=== PATIENT | female | born 1955 | race Caucasian/White ===

== ENCOUNTER 2016-04-04 02:09 | Inpatient (IN) ==
[2016-04-04] MEDS ORDERED: Ondansetron 4 MG/2 ML VIAL IVP PRN ×2 (05:28→21:02)
[2016-04-04] MEDS: *HR* HYDROmorphone (PF) 1 MG/ML SYRINGE IVP PRN ×8 (05:41→22:25)
[2016-04-04 06:13] LABS: Basophils % 0.5 %; Eosinophils # 0.2 K/mcL (0.0-0.6); Eosinophils % 3.2 %; Hematocrit 41.7 % (35.3-44.9); Hemoglobin 13.7 g/dL (11.5-15.4); Immature Granulocytes % 0.4 % (0-4); Lymphocytes # 1.4 K/mcL (0.6-4.6); Mean Corpuscular HGB Conc 32.9 g/dL (31.6-35.5); Mean Corpuscular Hemoglobin 31.1 pg (28.0-33.3); Mean Corpuscular Volume 94.8 fL (83.0-100.0); Mean Platelet Volume 10.9 fL (9.4-12.4); Monocytes # 0.7 K/mcL (0.0-1.3); Monocytes % 9.4 %; Neutrophils # 5.1 K/mcL (1.6-8.9); Platelet Count 195 K/mcL (140-400); Red Cell Distribution Width 13.6 % (11.5-14.5); Segmented Neutrophils % 67.5 %
[2016-04-04 06:23] LABS: BUN/Creatinine Ratio 27 (6-26); Blood Urea Nitrogen 23 mg/dL (7-20); Calcium 9.1 mg/dL (8.6-10.8); Carbon Dioxide 23 mEq/L (19-29); Chloride 114 mEq/L (98-109); Glucose 96 mg/dL (70-99); Osmolality,Calculated 300 (280-300); Potassium 3.4 mEq/L (3.5-4.5); Sodium 143 mEq/L (136-145); eGFR For African Americans > 60 (> 60); eGFR For Non-African Americans > 60 (> 60)
[2016-04-04 06:31] LABS: INR 1.2; Prothrombin Time 12.7 Seconds (9.4-12.1)
--- NOTE | 2016-04-04 06:49 | Orthopedic History & Physical ---
Date of Encounter: 04/04/16 Time of Encounter: 06:48 History of Present Illness HPI: Ms. Burleson is a 60 year old female Status post fall off a treadmill early this morning injuring her left leg. Patient denies any head trauma. Complains of pain in the left leg. Past medical history: Fibromyalgia, gastroesophageal reflux disease chronic pain. Surgical history hysterectomy, eye surgery. Physical exam alert and oriented 3 normocephalic atraumatic Left lower extremity swelling and tenderness decreased motion secondary to pain X-rays show comminuted displaced left proximal tibia fracture plan for a left total knee replacement. I discussed the risks benefits as well as recovery of the planned procedure. Labs were reviewed no abnormalities. Past Med Surg Social Fam HX - Past Medical History Medical history: arthritis, COPD, fibromyalgia, GERD, thyroid disease Psychiatric history: no psych history - Past Surgical History Surgical History: hysterectomy - Social History Smoking Status: Never smoker Smokeless Tobacco Status: No Alcohol use: none Drug use: none - Family History Father Hx Family Cancer: Yes (Prostate) Medications and Allergies Levothyroxine [Synthroid] 25 mcg PO 0630 04/04/16 [History] Allergies codeine Allergy (Verified 04/04/16 04:43) Itching Penicillins Allergy (Verified 04/04/16 04:43) Itching tramadol Allergy (Verified 04/04/16 04:43) Itching All Systems Reviewed: A 10-system review of systems was performed and is negative for pertinent findings except as documented above in the HPI. Physical Exam - Constitutional Vitals: Temp Pulse Resp BP Pulse Ox 98.4 F 91 16 139/78 98 04/04/16 05:16 04/04/16 05:16 04/04/16 05:16 04/04/16 05:16 04/04/16 05:16 Results - Labs Result Diagrams: 04/04/16 05:50 04/04/16 05:50 Labs: Abnormal lab results PT 12.7 Seconds (9.4-12.1) H 04/04/16 05:50 Potassium 3.4 mEq/L (3.5-4.5) L 04/04/16 05:50 Chloride 114 mEq/L (98-109) H 04/04/16 05:50 BUN 23 mg/dL (7-20) H 04/04/16 05:50 BUN/Creatinine Ratio 27 (6-26) H 04/04/16 05:50 H & H 04/04/16 Range/Units 05:50 Hgb 13.7 (11.5-15.4) g/dL Hct 41.7 (35.3-44.9) % All other labs normal.
--- NOTE | 2016-04-04 09:11 | Internal Medicine Consult Note ---
<Susan Wylie - Last Filed: 04/04/16 09:12> Date of Encounter: 04/04/16 Time of Encounter: 08:15 Internal Medicine - CN: HPI - Data of Consult Patient: new to practice Consult date: 04/04/16 Requesting Physician: Kd Olivas MD - Consult Narrative Reason for consult: Preop evaluation History of present illness: Ms. Burleson is a 60 year old female with PMH of COPD, GERD, hypothyroidism, fibromyalgia and chronic sciatic pain. Patient had a mechanical fall from the treadmill and landed on her left leg. Patient presented to [facility] ED for left knee pain and X-ray found comminuted displaced left proximal tibia fracture. Patient was admitted to [facility] for left total knee replacement and hospitalist is consulted for preoperative evaluation. Patient reports having pain at anterior and posterior left knee. She also has chronic bilateral sciatic pain. Patient denies fever, chills, headache, chest pain, dyspnea, abdominal pain, peripheral edema, numbness/tingling, focal weakness. Patient denies hitting her head during the fall. Patient denies any known cardiac disorder such heart attack or valvular disorder but did have stress test done at [facility] in February. Patient states she is on aspirin, statin and Carvedilol, which she thinks it's for protecting her heart. Her COPD is secondary to second-hand smoking and she is not on home oxygen. Patient denies any history of stroke. Per patient, she is in general pretty healthy & active and able to walk 1-2 blocks without significant shortness of breath. Patient is full code and okay to short-term intubation. - Constitutional Constitutional: falls, no anorexia, no chills, no fever(s), no weight gain, no weight loss - EENT Eyes: no loss of vision Ears: no decreased hearing Nose, mouth and throat: no dysphagia - Cardiovascular Cardiovascular ROS IM: no chest pain, no edema, no syncope - Respiratory Respiratory: no cough, no dyspnea, no hemoptysis - Gastrointestinal Gastrointestinal: no abdominal pain, no diarrhea, no hematochezia, no melena, no nausea, no vomiting - Genitourinary Genitourinary: no difficulty urinating, no dysuria, no hematuria - Musculoskeletal Musculoskeletal ROS IM: as per HPI, back pain - Integumentary Integumentary IM: no pruritus, no rash - Neurological Neurological ROS: no focal weakness, no numbness, no tingling - Hematologic/Lymphatic Hematologic/Lymphatic: easy bruising, no easy bleeding Past Med Surg Social Fam HX - Past Medical History Medical history: arthritis, COPD, fibromyalgia, GERD, thyroid disease Psychiatric history: no psych history - Past Surgical History Surgical History: hysterectomy - Social History Smoking Status: Never smoker Smokeless Tobacco Status: No Alcohol use: none Drug use: none - Family History Father Hx Family Cancer: Yes (Prostate) Mother Hx Family Neurologic Disorders: Yes (Stroke) Internal Medicine - CN: Meds Diclofenac Sodium [Voltaren] 50 mg PO Q8HR 04/04/16 [History] Levothyroxine [Synthroid] 25 mcg PO 0630 04/04/16 [History] Montelukast [Singulair] 10 mg PO HS 04/04/16 [History] OxyCODONE/APAP 7.5/325 [Percocet 7.5/325 MG] 1 each PO Q6HR PRN 04/04/16 [ History] Pravastatin Sodium [Pravachol] 20 mg PO HS 04/04/16 [History] Tiotropium [Spiriva] 1 puff IH 0700 04/04/16 [History] Zolpidem [Ambien] 5 mg PO HS 04/04/16 [History] Allergies codeine Allergy (Verified 04/04/16 04:43) Itching Penicillins Allergy (Verified 04/04/16 04:43) Itching tramadol Allergy (Verified 04/04/16 04:43) Itching Internal Medicine - CN: Exam - Constitutional Vitals: Temp Pulse Resp BP Pulse Ox 97.6 F 92 16 107/72 96 04/04/16 06:47 04/04/16 06:47 04/04/16 06:47 04/04/16 06:47 04/04/16 06:47 General appearance IM: Present: cooperative, A&O X 3, no acute distress, answers questions appropriately - Head Head exam: Present: atraumatic, normal inspection, normocephalic - Eye Eye exam: Present: EOMI, PERRL, sclera anicteric - ENT ENT exam: Present: mucous membranes dry - Neck Neck exam general surgery: Present: normal inspection, supple, trachea midline - Respiratory Respiratory exam: Present: CTAB. Absent: rales, rhonchi, wheezes - Cardiovascular Cardiovascular exam IM: Present: RRR, +S1, +S2. Absent: diastolic murmur, systolic murmur - GI/Abdominal GI/Abdominal exam IM: Present: normal bowel sounds, soft, no peritoneal signs. Absent: tenderness - Extremities Exam Extremities exam IM: Present: joint swelling (Left knee), tenderness (Left knee) , radial pulses palpable and symetrical. Absent: pedal edema Additional comments: Left knee splint in place. - Neurological Exam Neurological exam: Present: alert, CN II-XII intact, oriented X3, no focal deficits, strengths equal and symetr throughout. Absent: facial droop, speech deficit - Skin Skin exam IM: Present: dry, normal color, warm Internal Medicine - CN: Reslt - Labs CBC & Chem 7: 04/04/16 05:50 04/04/16 05:50 Labs: Short CBC 04/04/16 Range/Units 05:50 WBC 7.5 (4.3-11.1) K/mcL Hgb 13.7 (11.5-15.4) g/dL Hct 41.7 (35.3-44.9) % Plt Count 195 (140-400) K/mcL Neutrophils # 5.1 (1.6-8.9) K/mcL BMP 04/04/16 05:50 Sodium 143 Potassium 3.4 L Chloride 114 H Carbon Dioxide 23 BUN 23 H Creatinine 0.85 Glucose 96 Calcium 9.1 - ABG Interpretation ABG results: PT/INR, D-dimer PT 12.7 Seconds (9.4-12.1) H 04/04/16 05:50 - Impressions Impressions Chest X-Ray 04/04/16 00:00 IMPRESSION: 1. No acute abnormality. D/ / Iglesia Alberto MD / Iglesia Alberto MD Interpreting Provider: Iglesia Alberto MD - Assessment and Plan (1) Pre-operative examination for internal medicine Current Visit: Yes Status: Acute Assessment and plan: - Given lack of active cardiac conditions (e.g. history of CT or arrhythmia) or clinical risk factors (e.g. history of CAD, CVA, DM), patient is considered low risk for this intermediate-risk surgery. - Will obtain stress test result from [facility]. - In general patient is medically optimized for upcoming surgery. (2) Left tibial fracture Current Visit: Yes Status: Acute Assessment and plan: - Dr. Olivas plans to have left total knee replacement. Qualifiers: Encounter type: initial encounter Tibia location: proximal Fracture type : closed Fracture morphology: unspecified fracture morphology Qualified Code (s): S82.102A - Unspecified fracture of upper end of left tibia, initial encounter for closed fracture (3) COPD (chronic obstructive pulmonary disease) Current Visit: Yes Status: Chronic Assessment and plan: - COPD secondary to second-hand smoking and not on home oxygen. - Will obtain medical records from [facility] - Supportive care with as needed supplemental oxygen and/or breathing treatment. Qualifiers: COPD type: unspecified COPD Qualified Code(s): J44.9 - Chronic obstructive pulmonary disease, unspecified (4) GERD (gastroesophageal reflux disease) Current Visit: Yes Status: Chronic Assessment and plan: - NPO diet now. - May resume omeprazole later. Qualifiers: Esophagitis presence: esophagitis presence not specified Qualified Code(s) : K21.9 - Gastro-esophageal reflux disease without esophagitis (5) DVT prophylaxis Current Visit: Yes Status: Acute Assessment and plan: - DVR prophylaxis per orthopedic protocol. Consult Discharge Plan - Plan Referrals: NO,PCP [Primary Care Provider] - <Darci Hunt - Last Filed: 04/04/16 10:58> Date of Encounter: 04/04/16 - Attending Attestation I have seen and examined this patient independently. I have discussed the case with the medical records tech, Dr. Deven Wylie. I agree with the data gathering in the HPI, physical examination findings, assessment and plan as documented by the resident. Patient medically optimized to undergo surgery, management as per primary team. Internal Medicine - CN: HPI - Data of Consult Requesting Physician: Kd Olivas MD - Consult Narrative History of present illness: Ms. Burleson is a 60 year old female Internal Medicine - CN: Exam - Constitutional Vitals: Temp Pulse Resp BP Pulse Ox 97.6 F 92 16 107/72 96 04/04/16 06:47 04/04/16 06:47 04/04/16 06:47 04/04/16 06:47 04/04/16 06:47 Internal Medicine - CN: Reslt - Labs CBC & Chem 7: 04/04/16 05:50 04/04/16 05:50 Labs: Short CBC 04/04/16 Range/Units 05:50 WBC 7.5 (4.3-11.1) K/mcL Hgb 13.7 (11.5-15.4) g/dL Hct 41.7 (35.3-44.9) % Plt Count 195 (140-400) K/mcL Neutrophils # 5.1 (1.6-8.9) K/mcL BMP 04/04/16 05:50 Sodium 143 Potassium 3.4 L Chloride 114 H Carbon Dioxide 23 BUN 23 H Creatinine 0.85 Glucose 96 Calcium 9.1 - ABG Interpretation ABG results: PT/INR, D-dimer PT 12.7 Seconds (9.4-12.1) H 04/04/16 05:50 - Impressions Impressions Chest X-Ray 04/04/16 00:00
--- NOTE | 2016-04-04 11:22 | Discharge Summary ---
Date of Encounter: 04/08/16 Time of Encounter: 06:34 - Discharge Diagnosis (1) Obesity (BMI 30.0-34.9) Priority: Secondary Status: Chronic (2) Fracture of proximal end of left tibia Priority: Primary Status: Acute Qualifiers: Encounter type: initial encounter Fracture type: closed Fracture morphology: unspecified fracture morphology Qualified Code(s): S82.102A - Unspecified fracture of upper end of left tibia, initial encounter for closed fracture (3) COPD (chronic obstructive pulmonary disease) Priority: Secondary Status: Chronic Qualifiers: COPD type: unspecified COPD Qualified Code(s): J44.9 - Chronic obstructive pulmonary disease, unspecified (4) GERD (gastroesophageal reflux disease) Priority: Secondary Status: Chronic Qualifiers: Esophagitis presence: esophagitis presence not specified Qualified Code(s) : K21.9 - Gastro-esophageal reflux disease without esophagitis (5) Acute blood loss anemia Priority: Primary Status: Acute - Discharge Medications Prescriptions: Aspirin Enteric Coated [Aspirin EC] 325 mg PO Q12H #30 tablet. OxyCODONE/APAP 7.5/325 [Percocet 7.5/325 MG] 1 each PO Q6HR PRN #30 tablet PRN Reason: Mild Pain Home Medications: Aspirin Enteric Coated [Aspirin EC] 325 mg PO Q12H #30 tablet. 04/04/16 [Rx] Carvedilol [Carvedilol] 3.125 mg PO BID 04/04/16 [History] Diclofenac Sodium [Voltaren] 50 mg PO Q8HR 04/04/16 [History] Levothyroxine [Synthroid] 25 mcg PO 0630 04/04/16 [History] Montelukast [Singulair] 10 mg PO HS 04/04/16 [History] Multivitamin [Multivitamins] 1 each PO DAILY 04/04/16 [History] OxyCODONE/APAP 7.5/325 [Percocet 7.5/325 MG] 1 each PO Q6HR PRN #30 tablet 04/04 [Rx] Pravastatin Sodium [Pravachol] 20 mg PO HS 04/04/16 [History] Ropinirole HCl [Ropinirole HCl] 0.5 mg PO BID 04/04/16 [History] Tiotropium [Spiriva] 1 puff IH 0700 04/04/16 [History] Zolpidem [Ambien] 5 mg PO HS 04/04/16 [History] Allergies/Adverse Reactions: Allergies codeine Allergy (Verified 04/04/16 04:43) Itching Penicillins Allergy (Verified 04/04/16 04:43) Itching tramadol Allergy (Verified 04/04/16 04:43) Itching Labs on day of discharge: Labs from last 24 hours 04/04/16 04/04/16 04/04/16 05:50 05:50 05:50 WBC 7.5 RBC 4.40 Hgb 13.7 Hct 41.7 MCV 94.8 MCH 31.1 MCHC 32.9 RDW 13.6 Plt Count 195 MPV 10.9 Immature Gran % 0.4 Seg Neutrophils % 67.5 Lymphocytes % 19.0 Monocytes % 9.4 Eosinophils % 3.2 Basophils % 0.5 Neutrophils # 5.1 Lymphocytes # 1.4 Monocytes # 0.7 Eosinophils # 0.2 Basophils # 0.0 PT 12.7 H INR 1.2 Sodium 143 Potassium 3.4 L Chloride 114 H Carbon Dioxide 23 BUN 23 H Creatinine 0.85 Est GFR ( Amer) > 60 Est GFR (Non-Af Amer) > 60 BUN/Creatinine Ratio 27 H Glucose 96 Calculated Osmolality 300 Calcium 9.1 - Impressions ITS Impressions Chest X-Ray 04/04/16 00:00 IMPRESSION: 1. No acute abnormality. D/ / Iglesia Alberto MD / Iglesia Alberto MD Interpreting Provider: Iglesia Alberto MD Date of admission: 04/04/16 04:01 Primary care physician: PCP NO Consults: 04/04/16 06:53 Consult to Physician [CONS] Routine Consulting Provider: Darci Hunt Reason for Consult: PREOP CLEARANCE Call Completed: Yes - Patient Status Disposition: Home Health Service Condition: Good Functional capacity at discharge: uses cane/walker Overall status at discharge: patient is progressing back to baseline - Discharge Instructions Follow Up With: NO,PCP [Non-Partnered Physician] - - Hospital Course Hospital course: Ms. Burleson is a 60 year old female The patient had an uneventful postoperative course. They received antibiotics and physical therapy and were discharged in stable condition. There will follow -up in the office in 2 weeks. Aspirin DVT prophylaxis - Time Spent with Patient Total time spent providing and/or coordinating discharge services:
--- NOTE | 2016-04-04 14:49 | Electrocardiograph Report ---
[facility] Test Date: 2016-04-04 Pat Name: Concetta Burleson Department: 114 Room: [facility] Gender: F Director Of Coding: [facility] : 1955 Requested By: Kd Olivas Order Number: [id number] Reading MD: Adelfo Heath Measurements Intervals [place] Rate: 89 P: -11 ME: 141 QRS: -6 QRSD: 96 T: 31 QT: 371 QTc: 418 Interpretive Statements SINUS RHYTHM MINIMAL ST DEPRESSION Electronically Signed On 04-04-16 14:48:05 EST by Adelof Heath
--- NOTE | 2016-04-04 15:32 | Anesthesia Evaluation PreOp ---
Date of Encounter: 04/04/16 Time of Encounter: 15:30 - Past History Planned Operation: Left Total Knee Arthroplasty Cardiac History: Hyperlipidemia Pulmonary History: COPD HEALTH ASSISTANT History: Denies Any Significant HX Other Medical History: Thyroid, GERD, Other (fibromyalgia) Anesthesia History: No Prior Anesthetic Complications, Past Anesthesia ( hysterectomy) Alcohol Use: none Drug use: none Medications and Allergies Aspirin Enteric Coated [Aspirin EC] 325 mg PO Q12H #30 tablet. 04/04/16 [Rx] Carvedilol [Carvedilol] 3.125 mg PO BID 04/04/16 [History] Diclofenac Sodium [Voltaren] 50 mg PO Q8HR 04/04/16 [History] Levothyroxine [Synthroid] 25 mcg PO 0630 04/04/16 [History] Montelukast [Singulair] 10 mg PO HS 04/04/16 [History] Multivitamin [Multivitamins] 1 each PO DAILY 04/04/16 [History] OxyCODONE/APAP 7.5/325 [Percocet 7.5/325 MG] 1 each PO Q6HR PRN #30 tablet 04/04 [Rx] Pravastatin Sodium [Pravachol] 20 mg PO HS 04/04/16 [History] Ropinirole HCl [Ropinirole HCl] 0.5 mg PO BID 04/04/16 [History] Tiotropium [Spiriva] 1 puff IH 0700 04/04/16 [History] Zolpidem [Ambien] 5 mg PO HS 04/04/16 [History] Allergies codeine Allergy (Verified 04/04/16 04:43) Itching Penicillins Allergy (Verified 04/04/16 04:43) Itching tramadol Allergy (Verified 04/04/16 04:43) Itching - Meds/Allergy Pre-op Review Medications Reviewed: Yes Allergies Reviewed: Yes Beta Blockers on Current Med List: No Anesthesia Results - Labs 04/04/16 05:50 04/04/16 05:50 Laboratory Tests 04/04/16 05:50 PT 12.7 H INR 1.2 - Imaging EKG: report reviewed (04/04/2016 SR, minimal ST depression) Anesthesia Exam Vital Signs/O2 Sat, Most Current Temp Pulse Resp BP Pulse Ox 98.0 F 91 16 111/64 98 04/04/16 12:09 04/04/16 12:09 04/04/16 12:09 04/04/16 12:09 04/04/16 12:09 Height: 5'9''/1.75 m Weight: 234 lbs/106.458 kg NPO (# of Hours): 8 Pain Scale: 7 (left knee) Pain Scale Used: Numeric (1 - 10) - HEENT Pupil (Motor): EOMI Mallampati: II Teeth: Normal Oral Opening: Greater than 3 - HEALTH ASSISTANT LOC: Oriented HEALTH ASSISTANT Motor: Normal RUE, Normal LUE, Normal RLE, Normal LLE, Normal Face HEALTH ASSISTANT Sensory: Normal: RUE, LUE, RLE, LLE, Face - Cardiac Rhythm: Regular Murmur: None - Pulmonary Breath Sounds: bilateral Clear Respiratory Effort: Symmetrical Anesthesia Assess/Plan ASA Score: 2 Modified Sunshine Scale for Level of Consciousness: Cooperative, oriented, and tranquil Anesthetic Plan: General, Regional Monitoring Plan: Standard Monitors Recovery Plan: PACU
[2016-04-04] MEDS ORDERED: *HR* Midazolam HCl 2 MG/2 ML VIAL ONE (17:14)
[2016-04-04] MEDS ORDERED: *HR* FentaNYL (PF) 100 MCG/2 ML VIAL ONE ×3 (17:14→19:11)
[2016-04-04] MEDS ORDERED: Bupivacaine/Clonidine Syringe 1 EACH SYRINGE ONE (17:19)
--- NOTE | 2016-04-04 17:49 | Anesthesia Procedures ---
Date of Encounter: 04/04/16 Time of Encounter: 17:15 Procedures: Anesthesia - Nerve Block Procedure Date: 04/04/16 Time: 17:15 Allergies/Adv Reactions: Codeine,PCN,Tramadol Pre-op Diagnosis: Left tib/fib plateau fracture Surgical Procedure: Left total knee arthroplasty Checklist: Correct Patient Identifier, Correct procedure, History checked Correct side: Left Blood Thinner: No Monitor Applied: EKG, BP, Pulse Oximetry Supplemental Oxygen via Nasal Cannula (L/min): 2 Sedation: Versed (mg): 2 Sedation: Fentanyl (mcg): 100 Indication: Post Op Analgesia Pre-op Neuro Deficits: No Block Type: Femoral Catheter placed: No Sterile Technique: Yes Ultrasound used: Yes Anatomy identified: Yes Visual spread of Local: Yes Neuro Stimulation: Yes Nerve Stimulator Range: 0.2 - 0.4 mA Blood on Needle Aspiration: No Smooth Injection of Local: Yes Pain with Injection of Local: No Prep: Chlorhexadine Needle: 22 x 50 mm Stimuplex Local: 0.25% Bupivicaine w/Clonidine 20 mcg/cc Volume (cc): 40 Number of Attempts: 1 Complications: None/effective block Vitals: Vital Signs/O2 Sat/Glucose, Most Recent Temp Pulse Resp BP Pulse Ox 98.6 F 94 16 122/85 95 04/04/16 16:03 04/04/16 16:03 04/04/16 16:03 04/04/16 16:03 04/04/16 16:03 Comments: VSS,TOLERATED PROCEDURE WELL, RESTING WITH NO c/o DISCOMFORT
[2016-04-04] MEDS ORDERED: Clindamycin 900 MG/50 ML 900 MG/50 ML IV.SOLN IVPB ONE (18:26)
[2016-04-04] MEDS ORDERED: *HR* Propofol 200 MG/20 ML VIAL IVP ONE (18:46)
[2016-04-04] MEDS ORDERED: Lidocaine -MPF 2% 2 ML VIAL ONE (18:46)
[2016-04-04] MEDS ORDERED: Lidocaine -MPF 4% 5 ML AMPUL ONE (18:46)
[2016-04-04] MEDS ORDERED: *HR* Succinylcholine 200 MG/10 ML VIAL IVP ONE (18:46)
[2016-04-04] MEDS ORDERED: Ondansetron 4 MG/2 ML VIAL IVP ONE (18:51)
[2016-04-04] MEDS ORDERED: Dexamethasone 4 MG/ML VIAL ONE (18:58)
[2016-04-04] MEDS ORDERED: Ondansetron 4 MG/2 ML VIAL ONE (18:58)
[2016-04-04] MEDS ORDERED: Ringers Solution, Lactated 1,000 ML IVC SCH ×2 (19:00→21:02)
--- NOTE | 2016-04-04 19:30 | Orthopedic Operative Note ---
Date of procedure: 04/04/16 Pre-op diagnosis: Displace comminuted depressed medial tibial plateau fx Post-op diagnosis: same (Left knee arthritis) Procedure: Procedure: Left Total knee replacement Estimated blood loss: 400 cc Hardware: Arthrex Femur: 6 Tibia: 4, 14 x 100 stem, 10 mm medial augment PS insert: 14 Patella: 37 Procedural Notes: Patient noted to have grade 4 arthritic changes patellofemoral joint and medial femoral condyle. Displaced depressed comminuted medial tibial plateau fracture. Operative procedure: The patient was brought to the operating room and placed on the operating room table. After general anesthesia was administered the operative knee was examined. The patient with swelling and ecchymosis instability. The operative extremity was prepped and draped in sterile surgical fashion. The patient received IV antibiotics prior to skin incision. A standard midline incision was made centered over the patella. The incision was made through the skin and subcutaneous tissue. A medial parapatellar tendon approach was performed. Actually hematoma was immediately encountered. Care was taken to preserve tissue along the medial aspect of the patella. And to protect the patella tendon. The medial tibial plateau was fractured and depressed comminuted. The infra patella fat pad was excised. Knee was brought into flexion. Patient noted to have grade 4 arthritic changes medial femoral condyle and patella The entry hole was made for the intramedullary femoral guide. The guide was seated in 6 degrees of valgus. Anterior cut was made followed by the distal cut. The ACL the PCL the medial and the lateral menisci were excised. The tibia was subluxed forward. The entry hole was made for the intramedullary tibial guide. Guide was seated to resect at a stable portion above the fracture. The knee was brought into flexion the distal femur was sized to a 6. The femoral guide was seated, the anterior cut was made followed by the posterior condylar cut, followed by the chamfer cuts. The finishing guide was seated the box cut was made and the lug holes were drilled. The tibia was sized, 4 the tibial tray was seated and prepared with the large drill followed by the fin cutter was cut for a 10 mm augment with just skimming the fractur. Trial reduction revealed full extension no varus valgus instability with the appropriate 14 PS Halley. The patella was everted and cut was made at the level of the insertion of the quadriceps and patella tendon. The patella was sized 37 the guide was seated and the lug holes are drilled. Trial reduction revealed excellent patella tracking. All trial components were removed all bony surfaces were irrigated. The components were assembled on the back table. The tibia was cemented first followed by the femur. The 14 PS Halley was seated and the knee was brought into full extension. The patella was cemented and held in place with the patellar holding clamp. After the cement had hardened, the knee sat for 2 minutes with a Betadine saline solution. The knee was then irrigated out with 2 L of pulse irrigation. The extensor mechanism was closed with #2 FiberWire suture and #2 PDS suture. The subcutaneous tissue was then irrigated and closed deep with #1 PDS suture superficially with 0 PDS suture and skin was closed with skin michel and Dermabond. The patient was then placed in a sterile dressing and a postoperative brace extubated and transferred to recovery room in stable condition. Anesthesia: YESI Surgeon: Kd Olivas Condition: stable Disposition: PACU
[2016-04-04 20:16] LABS: Hematocrit 42.6 % (35.3-44.9); Hemoglobin 13.4 g/dL (11.5-15.4)
--- NOTE | 2016-04-04 20:31 | Anesthesia Evaluation Post Op ---
Date of Encounter: 04/04/16 Time of Encounter: 20:31 - Vital Signs Vital Signs: Last Vital Signs Temp 99 F 04/04/16 20:05 Pulse 96 04/04/16 20:25 Resp 12 04/04/16 20:25 BP 126/71 04/04/16 20:25 Pulse Ox 95 04/04/16 20:25 - Lungs Lungs: Clear Ascult./Percussion - Airway Airway: Non-obstructed - Cardiovascular Regular Rate - Mental Status Mental Status: Alert & Oriented, Answers Appropriately - Pain Pain Scale: 2 - Nausea Vomiting Nausea Vomiting: Not Present - Hydration Hydration: Ice chips - Discharge PostOp Status: Transfer Patient to floor
[2016-04-04] MEDS ORDERED: Sennosides 8.6 MG TABLET PO PRN (21:02)
[2016-04-04] MEDS ORDERED: Acetaminophen 325 MG TABLET PO PRN (21:02)
[2016-04-04] MEDS ORDERED: Naloxone 0.4 MG/ML INJ IVP PRN (21:02)
[2016-04-04] MEDS ORDERED: MOM Conc 10 ML UD.LIQ PO PRN (21:02)
[2016-04-04] MEDS ORDERED: Temazepam 15 MG CAPSULE PO PRN (21:02)
[2016-04-04] MEDS ORDERED: Albuterol Neb 1.25 MG/3 ML VIAL IH ONE (21:02)
[2016-04-04] MEDS: rOPINIRole 0.25 MG TABLET PO SCH (22:22)
[2016-04-04] MEDS: Clindamycin 900 MG/50 ML 900 MG/50 ML IV.SOLN IVPB SCH (23:56)
[2016-04-05] MEDS: *HR* OxyCODONE Immed Rel 5 MG TABLET PO PRN ×5 (03:24→22:16)
[2016-04-05] MEDS: Levothyroxine 25 MCG TABLET PO SCH (05:48)
[2016-04-05] MEDS: *HR* Enoxaparin 30 MG/0.3 ML SYRINGE SQ SCH ×2 (05:48→17:57)
[2016-04-05] MEDS ORDERED: Levothyroxine 25 MCG TABLET PO SCH (06:30)
[2016-04-05 06:37] LABS: Hematocrit 35.8 % (35.3-44.9)
--- NOTE | 2016-04-05 06:39 | Orthopedics Progress Note ---
Date of Encounter: 04/05/16 Time of Encounter: 06:38 - Assessment and Plan (1) Obesity (BMI 30.0-34.9) Current Visit: Yes Status: Chronic (2) Fracture of proximal end of left tibia Current Visit: Yes Status: Acute Qualifiers: Encounter type: initial encounter Fracture type: closed Fracture morphology: unspecified fracture morphology Qualified Code(s): S82.102A - Unspecified fracture of upper end of left tibia, initial encounter for closed fracture (3) COPD (chronic obstructive pulmonary disease) Current Visit: Yes Status: Chronic Qualifiers: COPD type: unspecified COPD Qualified Code(s): J44.9 - Chronic obstructive pulmonary disease, unspecified (4) GERD (gastroesophageal reflux disease) Current Visit: Yes Status: Chronic Qualifiers: Esophagitis presence: esophagitis presence not specified Qualified Code(s) : K21.9 - Gastro-esophageal reflux disease without esophagitis Subjective Interval history: Patient was seen this morning doing well without complaints. Afebrile vital signs stable. Operative extremity: Neurovascularly intact Dressing clean dry and intact Calves nontender Assessment and plan: Continue with postoperative care Set up discharge planning Objective Vital signs: Vital Signs Temp Pulse Resp BP Pulse Ox 04/05/16 04:00 98.3 F 78 16 93/63 94 L 04/04/16 23:49 98.2 F 95 16 104/64 96 04/04/16 22:58 98.1 F 98 16 97/64 95 04/04/16 22:31 17 99 04/04/16 21:50 98.3 F 103 16 105/63 97 04/04/16 21:20 98.2 F 104 16 116/70 97 04/04/16 20:56 98.0 F 107 16 109/65 96 04/04/16 20:35 98.8 F 98 12 124/79 96 04/04/16 20:25 96 12 126/71 95 04/04/16 20:15 94 12 114/56 97 04/04/16 20:05 99 F 99 16 107/64 94 L 04/04/16 19:55 96 16 130/94 96 04/04/16 19:45 107 16 118/98 98 04/04/16 19:35 99.3 F 96 12 142/75 97 04/04/16 16:03 98.6 F 94 16 122/85 95 04/04/16 12:09 98.0 F 91 16 111/64 98 04/04/16 06:47 97.6 F 92 16 107/72 96 Intake and Output 04/04/16 04/04/16 04/05/16 15:59 23:59 07:59 Intake Total 150 / 150 Output Total 700 / 700 600 / 600 550 / 550 Balance -700 / -700 -600 / -600 -400 / -400 Intake: IV Fluids 50 / 50 Cleocin 900 MG/50 ML 900 50 / 50 mg In 50 ml @ 50 mls/hr IVPB Q8HR [facility] Rx#: [id number] Oral 100 / 100 Output: Estimated Blood Loss 400 / 400 Urine Amount (Catheter) 200 / 200 Catheter 700 / 700 550 / 550 - Labs CBC & BMP: 04/04/16 20:06 04/04/16 05:50 Labs: Abnormal lab results PT 12.7 Seconds (9.4-12.1) H 04/04/16 05:50 Potassium 3.4 mEq/L (3.5-4.5) L 04/04/16 05:50 Chloride 114 mEq/L (98-109) H 04/04/16 05:50 BUN 23 mg/dL (7-20) H 04/04/16 05:50 BUN/Creatinine Ratio 27 (6-26) H 04/04/16 05:50 - VTE Documentation of Mechanical Device: Venous foot pump, device Consult Discharge Plan - Plan Referrals: NO,PCP [Non-Partnered Physician] - Prescriptions: Aspirin Enteric Coated [Aspirin EC] 325 mg PO Q12H #30 tablet. OxyCODONE/APAP 7.5/325 [Percocet 7.5/325 MG] 1 each PO Q6HR PRN #30 tablet PRN Reason: Mild Pain
[2016-04-05 06:41] LABS: BUN/Creatinine Ratio 30 (6-26); Blood Urea Nitrogen 31 mg/dL (7-20); Carbon Dioxide 20 mEq/L (19-29); Chloride 112 mEq/L (98-109); Sodium 138 mEq/L (136-145); eGFR For African Americans > 60 (> 60)
[2016-04-05 06:42] LABS: Calcium 8.6 mg/dL (8.6-10.8); Glucose 137 mg/dL (70-99); Osmolality,Calculated 295 (280-300); eGFR For Non-African Americans 55 (> 60)
[2016-04-05 06:46] LABS: Hemoglobin 11.6 g/dL (11.5-15.4)
[2016-04-05 06:48] LABS: Potassium 4.5 mEq/L (3.5-4.5)
[2016-04-05] MEDS: *HR* HYDROmorphone (PF) 1 MG/ML SYRINGE IVP PRN (07:35)
[2016-04-05 07:41] LABS: Bilirubin,Urine Small (Negative); Blood,Urine Moderate (Negative); Clarity,Urine Cloudy (Clear); Color,Urine Dark Yellow (Yellow); Glucose,Urine (UA) Normal (Normal); Ketones,Urine Negative (Negative); Leukocyte Esterase,Urine Moderate (Negative); Nitrite,Urine Negative (Negative); Protein,Urine 30 mg/dL (Neg-Trace); Specific Gravity,Urine 1.021 (1.010-1.025); Urobilinogen,Urine Normal (Normal)
[2016-04-05 07:43] LABS: Squamous Epithelial Cell,Urine Many per lpf (None-Few); WBC,Urine 50-100 per hpf (0-3)
[2016-04-05 07:57] LABS: Calcium Oxalate Crystals,Urine Present; Hyaline Casts,Urine Few per lpf (None-Few); Mucus,Urine Few (Few)
[2016-04-05] MEDS: Tiotropium 18 MCG inhalation IH SCH (07:57)
[2016-04-05 07:58] LABS: Bacteria,Urine Few per hpf (None-Few)
[2016-04-05] MEDS: rOPINIRole 0.25 MG TABLET PO SCH ×2 (08:50→22:17)
[2016-04-05] MEDS: Clindamycin 900 MG/50 ML 900 MG/50 ML IV.SOLN IVPB SCH (08:50)
[2016-04-05] MEDS: Multivit/Ca/Min/Fe/FA 1 TAB TABLET PO SCH (08:50)
--- NOTE | 2016-04-05 18:19 | Internal Med Progress Note ---
Date of Encounter: 04/05/16 Time of Encounter: 17:00 - Assessment and plan (1) Constipation Current Visit: Yes Status: Acute Assessment and plan: adjust laxatives Qualifiers: Constipation type: slow transit constipation Qualified Code(s): K59.01 - Slow transit constipation (2) Fracture of proximal end of left tibia Current Visit: Yes Status: Acute Qualifiers: Encounter type: initial encounter Fracture type: closed Fracture morphology: unspecified fracture morphology Qualified Code(s): S82.102A - Unspecified fracture of upper end of left tibia, initial encounter for closed fracture (3) COPD (chronic obstructive pulmonary disease) Current Visit: Yes Status: Chronic Assessment and plan: Duonep q4 H , counselling on deep breathing Qualifiers: COPD type: unspecified COPD Qualified Code(s): J44.9 - Chronic obstructive pulmonary disease, unspecified - Time Spent With Patient less than 15 minutes - Subjective Interval history: Patient complain of constipation no bowel movement for last 2 days - Constitutional Vitals: Temp Pulse Resp BP Pulse Ox 98.3 F 96 16 103/65 96 04/05/16 15:19 04/05/16 15:19 04/05/16 15:19 04/05/16 15:19 04/05/16 15:19 General appearance: Present: cooperative, A&O X 3, no acute distress, answers questions appropriately - Head Head exam: Present: atraumatic, normocephalic - Respiratory Respiratory exam: Present: decreased breath sounds, prolonged expiratory phase. Absent: accessory muscle use, rales, rhonchi, wheezes - Cardiovascular Cardiovascular exam: Present: RRR, +S1, +S2. Absent: diastolic murmur, gallop, rubs, systolic murmur - GI/Abdominal GI/Abdominal exam: Present: normal bowel sounds, soft, no peritoneal signs. Absent: distended, tenderness - Neurological Exam Neurological exam: Present: CN II-XII intact, oriented X3, no focal deficits. Absent: facial droop, speech deficit Internal Medicine: Result - Labs CBC & Chem 7: 04/05/16 06:08 04/05/16 06:08 Labs: Short CBC 04/04/16 04/05/16 Range/Units 20:06 06:08 Hgb 13.4 11.6 D (11.5-15.4) g/dL Hct 42.6 35.8 (35.3-44.9) % BMP 04/05/16 06:08 Sodium 138 Potassium 4.5 D Chloride 112 H Carbon Dioxide 20 BUN 31 H Creatinine 1.02 Glucose 137 H Calcium 8.6 Urine 04/05/16 Range/Units 07:20 Urine Color Dark Yellow (Yellow) Urine Clarity Cloudy A (Clear) Urine pH 6.0 (5.0-8.0) pH Units Ur Specific [place] 1.021 (1.010-1.025) Urine Protein 30 H (Neg-Trace) mg/dL Urine Glucose (UA) Normal (Normal) mg/dL - ABG Interpretation ABG results: PT/INR, D-dimer PT 12.7 Seconds (9.4-12.1) H 04/04/16 05:50 - Impressions Impressions Knee X-Ray 04/04/16 18:05 IMPRESSION: Normal postoperative examination of the left knee. D/ / Chris Lyn MD / Chris Lyn MD Interpreting Provider: Chris Lyn MD - VTE Documentation of Mechanical Device: Venous foot pump, device Consult Discharge Plan - Plan Referrals: NO,PCP [Non-Partnered Physician] - Prescriptions: OxyCODONE/APAP 7.5/325 [Percocet 7.5/325 MG] 1 each PO Q6HR PRN #30 tablet PRN Reason: Mild Pain Aspirin Enteric Coated [Aspirin EC] 325 mg PO Q12H #30 tablet.
[2016-04-05] MEDS: Ipratropium/Albuterol Neb 3 ML IH SCH ×2 (20:03→21:20)
[2016-04-05] MEDS ORDERED: Sulfamethoxazole/Trimeth DS 1 EACH TABLET PO SCH (21:00)
[2016-04-06] MEDS: Levofloxacin 500 MG/100 ML 500 MG/100 ML BAG IVPB SCH ×2 (00:30→08:37)
[2016-04-06] MEDS: *HR* OxyCODONE Immed Rel 5 MG TABLET PO PRN ×3 (02:48→13:37)
[2016-04-06] MEDS: Ipratropium/Albuterol Neb 3 ML IH SCH ×4 (04:31→22:37)
[2016-04-06] MEDS: Levothyroxine 25 MCG TABLET PO SCH (05:56)
[2016-04-06] MEDS: *HR* Enoxaparin 30 MG/0.3 ML SYRINGE SQ SCH ×2 (05:56→17:38)
[2016-04-06 06:12] LABS: Hematocrit 28.5 % (35.3-44.9)
[2016-04-06 06:13] LABS: Hemoglobin 9.3 g/dL (11.5-15.4)
[2016-04-06 06:24] LABS: BUN/Creatinine Ratio 37 (6-26); Blood Urea Nitrogen 34 mg/dL (7-20); Calcium 8.2 mg/dL (8.6-10.8); Carbon Dioxide 22 mEq/L (19-29); Chloride 108 mEq/L (98-109); Glucose 112 mg/dL (70-99); Osmolality,Calculated 288 (280-300); Potassium 3.7 mEq/L (3.5-4.5); Sodium 135 mEq/L (136-145); eGFR For African Americans > 60 (> 60); eGFR For Non-African Americans > 60 (> 60)
--- NOTE | 2016-04-06 06:38 | Orthopedics Progress Note ---
Date of Encounter: 04/06/16 Time of Encounter: 06:37 - Assessment and Plan (1) Obesity (BMI 30.0-34.9) Current Visit: Yes Status: Chronic (2) Fracture of proximal end of left tibia Current Visit: Yes Status: Acute Qualifiers: Encounter type: initial encounter Fracture type: closed Fracture morphology: unspecified fracture morphology Qualified Code(s): S82.102A - Unspecified fracture of upper end of left tibia, initial encounter for closed fracture (3) COPD (chronic obstructive pulmonary disease) Current Visit: Yes Status: Chronic Qualifiers: COPD type: unspecified COPD Qualified Code(s): J44.9 - Chronic obstructive pulmonary disease, unspecified (4) GERD (gastroesophageal reflux disease) Current Visit: Yes Status: Chronic Qualifiers: Esophagitis presence: esophagitis presence not specified Qualified Code(s) : K21.9 - Gastro-esophageal reflux disease without esophagitis (5) Acute blood loss anemia Current Visit: Yes Status: Acute Subjective Interval history: Patient was seen this morning doing well without complaints. Afebrile vital signs stable. Operative extremity: Neurovascularly intact Dressing clean dry and intact Calves nontender Assessment and plan: Continue with postoperative care Hemoglobin 9.3 discharge held secondary to placement Objective Vital signs: Vital Signs Temp Pulse Resp BP Pulse Ox 04/06/16 00:00 98.1 F 100 17 121/80 98 04/05/16 21:20 16 99 04/05/16 20:00 98.0 F 103 19 122/65 97 04/05/16 15:19 98.3 F 96 16 103/65 96 04/05/16 13:50 109/73 04/05/16 10:44 98.1 F 82 16 101/56 94 L 04/05/16 08:03 99.1 F 85 16 97/56 98 04/05/16 07:57 16 98 04/05/16 06:49 104/70 Intake and Output 04/05/16 04/05/16 04/06/16 15:59 23:59 07:59 Intake Total 240 / 240 300 / 300 700 / 700 Output Total 300 / 300 300 / 300 Balance 240 / 240 0 / 0 400 / 400 Intake: Oral 240 / 240 300 / 300 700 / 700 Output: Urine 300 / 300 300 / 300 Other: Meal Breakfast Dinner Percent of Meal Consumed 25% 50% - Labs CBC & BMP: 04/06/16 05:40 04/06/16 05:40 Labs: Abnormal lab results Hgb 9.3 g/dL (11.5-15.4) L D 04/06/16 05:40 Hct 28.5 % (35.3-44.9) L 04/06/16 05:40 PT 12.7 Seconds (9.4-12.1) H 04/04/16 05:50 Sodium 135 mEq/L (136-145) L 04/06/16 05:40 BUN 34 mg/dL (7-20) H 04/06/16 05:40 BUN/Creatinine Ratio 37 (6-26) H 04/06/16 05:40 Glucose 112 mg/dL (70-99) H 04/06/16 05:40 Calcium 8.2 mg/dL (8.6-10.8) L 04/06/16 05:40 Urine Clarity Cloudy (Clear) A 04/05/16 07:20 Urine Protein 30 mg/dL (Neg-Trace) H 04/05/16 07:20 Urine Blood Moderate (Negative) H 04/05/16 07:20 Urine Bilirubin Small (Negative) H 04/05/16 07:20 Ur Leukocyte Esterase Moderate (Negative) H 04/05/16 07:20 Urine Microscopic RBC 3-5 per hpf (0-3) H 04/05/16 07:20 Urine Microscopic WBC 50-100 per hpf (0-3) H 04/05/16 07:20 Ur Squamous Epith Cells Many per lpf (None-Few) H 04/05/16 07:20 - VTE Documentation of Mechanical Device: Venous foot pump, device Consult Discharge Plan - Plan Referrals: NO,PCP [Non-Partnered Physician] - Prescriptions: Aspirin Enteric Coated [Aspirin EC] 325 mg PO Q12H #30 tablet. OxyCODONE/APAP 7.5/325 [Percocet 7.5/325 MG] 1 each PO Q6HR PRN #30 tablet PRN Reason: Mild Pain
[2016-04-06] MEDS: rOPINIRole 0.25 MG TABLET PO SCH ×2 (08:38→20:30)
[2016-04-06] MEDS: Multivit/Ca/Min/Fe/FA 1 TAB TABLET PO SCH (08:39)
[2016-04-06] MEDS: Tiotropium 18 MCG inhalation IH SCH (09:11)
--- NOTE | 2016-04-06 14:53 | Internal Med Progress Note ---
Date of Encounter: 04/06/16 Time of Encounter: 07:50 - Assessment and plan (1) Constipation Current Visit: Yes Status: Acute Assessment and plan: Continue MiraLAX , senna, Colace if not better will add 1 dose of lactulose tomorrow Qualifiers: Constipation type: slow transit constipation Qualified Code(s): K59.01 - Slow transit constipation (2) Fracture of proximal end of left tibia Current Visit: Yes Status: Acute Qualifiers: Encounter type: initial encounter Fracture type: closed Fracture morphology: unspecified fracture morphology Qualified Code(s): S82.102A - Unspecified fracture of upper end of left tibia, initial encounter for closed fracture (3) COPD (chronic obstructive pulmonary disease) Current Visit: Yes Status: Chronic Qualifiers: COPD type: unspecified COPD Qualified Code(s): J44.9 - Chronic obstructive pulmonary disease, unspecified (4) UTI (urinary tract infection) Current Visit: Yes Status: Acute Assessment and plan: Add ciprofloxacin awaiting culture results Qualifiers: Urinary tract infection type: site unspecified Hematuria presence: without hematuria Qualified Code(s): N39.0 - Urinary tract infection, site not specified (5) Microcytic anemia Current Visit: Yes Status: Acute Assessment and plan: Check iron study check stool for occult blood - Subjective Interval history: Patient still complains of constipation no nausea or vomiting - Constitutional Vitals: Temp Pulse Resp BP Pulse Ox 98.5 F 94 16 126/79 98 04/06/16 10:27 04/06/16 10:27 04/06/16 10:27 04/06/16 10:27 04/06/16 10:27 General appearance: Present: cooperative, A&O X 3, no acute distress, answers questions appropriately - Head Head exam: Present: atraumatic, normocephalic - Neck Neck exam general surgery: Present: supple, trachea midline. Absent: lymphadenopathy - Respiratory Respiratory exam: Present: CTAB. Absent: accessory muscle use, rales, rhonchi, wheezes - Cardiovascular Cardiovascular exam: Present: RRR, +S1, +S2. Absent: diastolic murmur, gallop, rubs, systolic murmur - GI/Abdominal GI/Abdominal exam: Present: normal bowel sounds, soft, no peritoneal signs. Absent: distended, tenderness Internal Medicine: Result - Labs CBC & Chem 7: 04/06/16 05:40 04/06/16 05:40 Labs: Short CBC 04/06/16 Range/Units 05:40 Hgb 9.3 L D (11.5-15.4) g/dL Hct 28.5 L (35.3-44.9) % BMP 04/06/16 05:40 Sodium 135 L Potassium 3.7 Chloride 108 Carbon Dioxide 22 BUN 34 H Creatinine 0.91 Glucose 112 H Calcium 8.2 L - ABG Interpretation ABG results: PT/INR, D-dimer PT 12.7 Seconds (9.4-12.1) H 04/04/16 05:50 - VTE Documentation of Mechanical Device: Venous foot pump, device Consult Discharge Plan - Plan Referrals: NO,PCP [Non-Partnered Physician] - Prescriptions: OxyCODONE/APAP 7.5/325 [Percocet 7.5/325 MG] 1 each PO Q6HR PRN #30 tablet PRN Reason: Mild Pain Aspirin Enteric Coated [Aspirin EC] 325 mg PO Q12H #30 tablet.
[2016-04-07] MEDS: *HR* Enoxaparin 30 MG/0.3 ML SYRINGE SQ SCH ×2 (04:24→16:44)
[2016-04-07] MEDS: Levothyroxine 25 MCG TABLET PO SCH (04:25)
[2016-04-07] MEDS: *HR* OxyCODONE Immed Rel 5 MG TABLET PO PRN ×5 (04:25→20:57)
[2016-04-07] MEDS: Ipratropium/Albuterol Neb 3 ML IH SCH ×4 (05:06→21:46)
[2016-04-07 05:15] LABS: Hematocrit 27.6 % (35.3-44.9); Hemoglobin 9.2 g/dL (11.5-15.4)
[2016-04-07 05:38] LABS: % Iron Saturation 16 % (15-50); Iron 28 mcg/dL (50-170); Transferrin 129 mg/dL (180-382)
[2016-04-07 05:59] LABS: Ferritin 160 ng/ml (5-204)
[2016-04-07] MEDS: Multivit/Ca/Min/Fe/FA 1 TAB TABLET PO SCH (08:03)
[2016-04-07] MEDS: rOPINIRole 0.25 MG TABLET PO SCH ×2 (08:03→21:08)
[2016-04-07] MEDS: Levofloxacin 500 MG/100 ML 500 MG/100 ML BAG IVPB SCH (08:03)
[2016-04-07] MEDS: Tiotropium 18 MCG inhalation IH SCH (09:46)
--- NOTE | 2016-04-07 09:46 | Orthopedics Progress Note ---
Date of Encounter: 04/07/16 Time of Encounter: 09:45 Subjective Interval history: Patient was seen this morning doing well without complaints. Afebrile vital signs stable. Operative extremity: Neurovascularly intact Dressing clean dry and intact Assessment and plan: Continue with postoperative care. Awaiting placement. Discharge when available. Objective Vital signs: Vital Signs Temp Pulse Resp BP Pulse Ox 04/07/16 06:41 98.3 F 91 16 101/56 96 04/07/16 00:40 98.1 F 95 16 99/60 95 04/06/16 22:37 16 94 L 04/06/16 20:44 98.3 F 95 18 99/58 95 04/06/16 17:12 14 97 04/06/16 10:27 98.5 F 94 16 126/79 98 Intake and Output 04/06/16 04/07/16 04/07/16 23:59 07:59 15:59 Intake Total 375 / 375 300 / 300 Output Total 300 / 300 325 / 325 Balance 75 / 75 -25 / -25 Intake: IV Fluids 100 / 100 Levaquin 500mg/100mL 500 100 / 100 mg In 100 ml @ 100 mls/hr IVPB DAILY [facility] Rx#: [id number] Oral 275 / 275 300 / 300 Output: Urine 300 / 300 325 / 325 - Labs CBC & BMP: 04/07/16 04:24 04/06/16 05:40 Labs: Abnormal lab results Hgb 9.2 g/dL (11.5-15.4) L 04/07/16 04:24 Hct 27.6 % (35.3-44.9) L 04/07/16 04:24 PT 12.7 Seconds (9.4-12.1) H 04/04/16 05:50 Sodium 135 mEq/L (136-145) L 04/06/16 05:40 BUN 34 mg/dL (7-20) H 04/06/16 05:40 BUN/Creatinine Ratio 37 (6-26) H 04/06/16 05:40 Glucose 112 mg/dL (70-99) H 04/06/16 05:40 Calcium 8.2 mg/dL (8.6-10.8) L 04/06/16 05:40 Iron 28 mcg/dL (50-170) L 04/07/16 04:24 Transferrin 129 mg/dL (180-382) L 04/07/16 04:24 Urine Clarity Cloudy (Clear) A 04/05/16 07:20 Urine Protein 30 mg/dL (Neg-Trace) H 04/05/16 07:20 Urine Blood Moderate (Negative) H 04/05/16 07:20 Urine Bilirubin Small (Negative) H 04/05/16 07:20 Ur Leukocyte Esterase Moderate (Negative) H 04/05/16 07:20 Urine Microscopic RBC 3-5 per hpf (0-3) H 04/05/16 07:20 Urine Microscopic WBC 50-100 per hpf (0-3) H 04/05/16 07:20 Ur Squamous Epith Cells Many per lpf (None-Few) H 04/05/16 07:20 - VTE Documentation of Mechanical Device: Venous foot pump, device Consult Discharge Plan - Plan Referrals: NO,PCP [Non-Partnered Physician] - Prescriptions: Aspirin Enteric Coated [Aspirin EC] 325 mg PO Q12H #30 tablet. OxyCODONE/APAP 7.5/325 [Percocet 7.5/325 MG] 1 each PO Q6HR PRN #30 tablet PRN Reason: Mild Pain
--- NOTE | 2016-04-07 15:18 | Internal Med Progress Note ---
Date of Encounter: 04/07/16 Time of Encounter: 15:15 - Assessment and plan (1) Constipation Current Visit: Yes Status: Acute Assessment and plan: will add 1 dose of lactulose Qualifiers: Constipation type: slow transit constipation Qualified Code(s): K59.01 - Slow transit constipation (2) Fracture of proximal end of left tibia Current Visit: Yes Status: Acute Qualifiers: Encounter type: initial encounter Fracture type: closed Fracture morphology: unspecified fracture morphology Qualified Code(s): S82.102A - Unspecified fracture of upper end of left tibia, initial encounter for closed fracture (3) COPD (chronic obstructive pulmonary disease) Current Visit: Yes Status: Chronic Assessment and plan: counselling again on deep breathing Qualifiers: COPD type: unspecified COPD Qualified Code(s): J44.9 - Chronic obstructive pulmonary disease, unspecified (4) UTI (urinary tract infection) Current Visit: Yes Status: Acute Assessment and plan: Continue ciprofloxacin awaiting culture results Qualifiers: Urinary tract infection type: site unspecified Hematuria presence: without hematuria Qualified Code(s): N39.0 - Urinary tract infection, site not specified (5) Microcytic anemia Current Visit: Yes Status: Acute Assessment and plan: Add iron supplements - Subjective Interval history: Patient still complains of constipation no nausea or vomiting , passing some gases. breathing is better with using incentive spirometry - Constitutional Vitals: Temp Pulse Resp BP Pulse Ox 97.5 F L 108 16 111/74 95 04/07/16 11:51 04/07/16 11:51 04/07/16 11:51 04/07/16 11:51 04/07/16 11:51 General appearance: Present: cooperative, A&O X 3, no acute distress, answers questions appropriately - Head Head exam: Present: atraumatic, normocephalic - Respiratory Respiratory exam: Present: CTAB. Absent: accessory muscle use, rales, rhonchi, wheezes - Cardiovascular Cardiovascular exam: Present: RRR, +S1, +S2. Absent: diastolic murmur, gallop, rubs, systolic murmur - GI/Abdominal GI/Abdominal exam: Present: normal bowel sounds, soft, no peritoneal signs. Absent: distended, tenderness - Neurological Exam Neurological exam: Present: CN II-XII intact, no focal deficits Internal Medicine: Result - Labs CBC & Chem 7: 04/07/16 04:24 04/06/16 05:40 Labs: Short CBC 04/07/16 Range/Units 04:24 Hgb 9.2 L (11.5-15.4) g/dL Hct 27.6 L (35.3-44.9) % - ABG Interpretation ABG results: PT/INR, D-dimer PT 12.7 Seconds (9.4-12.1) H 04/04/16 05:50 - VTE Documentation of Mechanical Device: Venous foot pump, device Consult Discharge Plan - Plan Referrals: NO,PCP [Non-Partnered Physician] - Prescriptions: OxyCODONE/APAP 7.5/325 [Percocet 7.5/325 MG] 1 each PO Q6HR PRN #30 tablet PRN Reason: Mild Pain Aspirin Enteric Coated [Aspirin EC] 325 mg PO Q12H #30 tablet.
[2016-04-07] MEDS ORDERED: Benzocaine 20% 9 GM GEL..GRAM. TP PRN (16:50)
[2016-04-07] MEDS: Lactulose Oral Soln 20 GM/30 ML UDC PO SCH (20:56)
[2016-04-08] MEDS: *HR* OxyCODONE Immed Rel 5 MG TABLET PO PRN ×2 (04:32→09:41)
[2016-04-08] MEDS: Ipratropium/Albuterol Neb 3 ML IH SCH ×2 (04:38→10:20)
[2016-04-08] MEDS: *HR* Enoxaparin 30 MG/0.3 ML SYRINGE SQ SCH (06:01)
[2016-04-08] MEDS: Levothyroxine 25 MCG TABLET PO SCH (06:01)
--- NOTE | 2016-04-08 06:35 | Orthopedics Progress Note ---
Date of Encounter: 04/08/16 Time of Encounter: 06:35 - Assessment and Plan (1) Obesity (BMI 30.0-34.9) Current Visit: Yes Status: Chronic (2) Fracture of proximal end of left tibia Current Visit: Yes Status: Acute Qualifiers: Encounter type: initial encounter Fracture type: closed Fracture morphology: unspecified fracture morphology Qualified Code(s): S82.102A - Unspecified fracture of upper end of left tibia, initial encounter for closed fracture (3) COPD (chronic obstructive pulmonary disease) Current Visit: Yes Status: Chronic Qualifiers: COPD type: unspecified COPD Qualified Code(s): J44.9 - Chronic obstructive pulmonary disease, unspecified (4) GERD (gastroesophageal reflux disease) Current Visit: Yes Status: Chronic Qualifiers: Esophagitis presence: esophagitis presence not specified Qualified Code(s) : K21.9 - Gastro-esophageal reflux disease without esophagitis (5) Acute blood loss anemia Current Visit: Yes Status: Acute Subjective Interval history: Patient was seen this morning doing well without complaints. Afebrile vital signs stable. Operative extremity: Neurovascularly intact Dressing clean dry and intact Calves nontender Assessment and plan: Continue with postoperative care Discharge today Objective Vital signs: Vital Signs Temp Pulse Resp BP Pulse Ox 04/08/16 05:44 98.6 F 86 18 106/64 95 04/08/16 00:37 97.9 F 75 15 91/61 97 04/07/16 20:28 98.7 F 99 15 102/66 97 04/07/16 16:50 16 93 L 04/07/16 16:00 97.9 F 104 16 114/78 96 04/07/16 11:51 97.5 F L 108 16 111/74 95 04/07/16 09:48 16 96 04/07/16 06:41 98.3 F 91 16 101/56 96 Intake and Output 04/07/16 04/07/16 04/08/16 15:59 23:59 07:59 Intake Total 550 / 550 350 / 350 300 / 300 Output Total 1200 / 1200 650 / 650 450 / 450 Balance -650 / -650 -300 / -300 -150 / -150 Intake: IV Fluids 100 / 100 Levaquin 500mg/100mL 500 100 / 100 mg In 100 ml @ 100 mls/hr IVPB DAILY [facility] Rx#: [id number] Oral 450 / 450 350 / 350 300 / 300 Output: Urine 1200 / 1200 650 / 650 450 / 450 - Labs CBC & BMP: 04/07/16 04:24 04/06/16 05:40 Labs: Abnormal lab results Hgb 9.2 g/dL (11.5-15.4) L 04/07/16 04:24 Hct 27.6 % (35.3-44.9) L 04/07/16 04:24 PT 12.7 Seconds (9.4-12.1) H 04/04/16 05:50 Sodium 135 mEq/L (136-145) L 04/06/16 05:40 BUN 34 mg/dL (7-20) H 04/06/16 05:40 BUN/Creatinine Ratio 37 (6-26) H 04/06/16 05:40 Glucose 112 mg/dL (70-99) H 04/06/16 05:40 Calcium 8.2 mg/dL (8.6-10.8) L 04/06/16 05:40 Iron 28 mcg/dL (50-170) L 04/07/16 04:24 Transferrin 129 mg/dL (180-382) L 04/07/16 04:24 Urine Clarity Cloudy (Clear) A 04/05/16 07:20 Urine Protein 30 mg/dL (Neg-Trace) H 04/05/16 07:20 Urine Blood Moderate (Negative) H 04/05/16 07:20 Urine Bilirubin Small (Negative) H 04/05/16 07:20 Ur Leukocyte Esterase Moderate (Negative) H 04/05/16 07:20 Urine Microscopic RBC 3-5 per hpf (0-3) H 04/05/16 07:20 Urine Microscopic WBC 50-100 per hpf (0-3) H 04/05/16 07:20 Ur Squamous Epith Cells Many per lpf (None-Few) H 04/05/16 07:20 - VTE Documentation of Mechanical Device: Venous foot pump, device Consult Discharge Plan - Plan Referrals: NO,PCP [Non-Partnered Physician] - Prescriptions: Aspirin Enteric Coated [Aspirin EC] 325 mg PO Q12H #30 tablet. OxyCODONE/APAP 7.5/325 [Percocet 7.5/325 MG] 1 each PO Q6HR PRN #30 tablet PRN Reason: Mild Pain
[2016-04-08 06:42] VITALS: BP 101/67
--- NOTE | 2016-04-08 08:54 | Internal Med Progress Note ---
Date of Encounter: 04/08/16 Time of Encounter: 07:50 - Assessment and plan (1) Constipation Current Visit: Yes Status: Acute Assessment and plan: add Dulcolax Qualifiers: Constipation type: slow transit constipation Qualified Code(s): K59.01 - Slow transit constipation (2) Fracture of proximal end of left tibia Current Visit: Yes Status: Acute Qualifiers: Encounter type: initial encounter Fracture type: closed Fracture morphology: unspecified fracture morphology Qualified Code(s): S82.102A - Unspecified fracture of upper end of left tibia, initial encounter for closed fracture (3) COPD (chronic obstructive pulmonary disease) Current Visit: Yes Status: Chronic Assessment and plan: , Stable ,counselling again on deep breathing Qualifiers: COPD type: unspecified COPD Qualified Code(s): J44.9 - Chronic obstructive pulmonary disease, unspecified (4) UTI (urinary tract infection) Current Visit: Yes Status: Acute Assessment and plan: Continue ciprofloxacin 5 extra days on discharge Qualifiers: Urinary tract infection type: site unspecified Hematuria presence: without hematuria Qualified Code(s): N39.0 - Urinary tract infection, site not specified (5) Microcytic anemia Current Visit: Yes Status: Acute Assessment and plan: continue iron supplements x 3 months - Time Spent With Patient less than 15 minutes (Agree with orthopedic patient can be discharged) - Subjective Interval history: Patient still complains of constipation no nausea or vomiting , had hard small bowel movement, she is ambulating better - Constitutional Vitals: Temp Pulse Resp BP Pulse Ox 98.2 F 91 16 101/67 97 04/08/16 06:39 04/08/16 06:39 04/08/16 06:39 04/08/16 06:39 04/08/16 06:39 General appearance: Present: cooperative, A&O X 3, no acute distress, answers questions appropriately - Respiratory Respiratory exam: Present: decreased breath sounds. Absent: accessory muscle use, rales, rhonchi, wheezes - Cardiovascular Cardiovascular exam: Present: RRR, +S1, +S2. Absent: diastolic murmur, gallop, rubs, systolic murmur - GI/Abdominal GI/Abdominal exam: Present: normal bowel sounds, soft, no peritoneal signs. Absent: distended, tenderness - Extremities Exam Extremities exam: Present: warm, radial pulses palpable and symetrical. Absent : calf tenderness, cyanotic, pedal edema Internal Medicine: Result - Labs CBC & Chem 7: 04/07/16 04:24 04/06/16 05:40 - ABG Interpretation ABG results: PT/INR, D-dimer PT 12.7 Seconds (9.4-12.1) H 04/04/16 05:50 - VTE Documentation of Mechanical Device: Venous foot pump, device Consult Discharge Plan - Plan Referrals: NO,PCP [Non-Partnered Physician] - Prescriptions: OxyCODONE/APAP 7.5/325 [Percocet 7.5/325 MG] 1 each PO Q6HR PRN #30 tablet PRN Reason: Mild Pain Aspirin Enteric Coated [Aspirin EC] 325 mg PO Q12H #30 tablet.
[2016-04-08] MEDS: Multivit/Ca/Min/Fe/FA 1 TAB TABLET PO SCH (09:29)
[2016-04-08] MEDS: rOPINIRole 0.25 MG TABLET PO SCH (09:29)
[2016-04-08] MEDS: Lactulose Oral Soln 20 GM/30 ML UDC PO SCH (09:31)
[2016-04-08] MEDS: Levofloxacin 500 MG/100 ML 500 MG/100 ML BAG IVPB SCH (09:33)
[2016-04-08] MEDS: Tiotropium 18 MCG inhalation IH SCH (10:22)
== END 2016-04-08 12:07 | disposition home health service (06) | DRG 470 ==
LOC: 3NENU 04:01
PROVIDERS: ADMIT Orthopaedic Surgery; ATTEND Orthopaedic Surgery